=== PATIENT | female | born 1960 | race Caucasian/White ===

== ENCOUNTER 2024-10-21 14:07 | Outpatient (CLI) | payer BC, SELFPAY ==
[2024-10-21 16:25] LABS: Microalbumin Creatinine Ratio 40 mg/g (0-30); Microalbumin Urine < 1 mg/dL
[2024-10-21 16:54] LABS: Albumin* 4.9 g/dL (3.3-5.0); Chloride* 105 mmol/L (96-114); Potassium* 4.7 mmol/L (3.6-5.1); Sodium* 140 mmol/L (135-149)
[2024-10-21 16:57] LABS: Anion Gap 10 mEq/L (7-15); Blood Urea Nitrogen* 14 mg/dL (7-30); Carbon Dioxide* 25 mmol/L (20-32); Creatinine* 1.1 mg/dL (0.5-1.5); Estimated Glomerular Filt Rate 56 ml/min; Phosphorus* 3.2 mg/dL (2.5-4.5)
[2024-10-21 16:58] LABS: Calcium* 10.3 mg/dL (8.4-10.6); Glucose* 111 mg/dL (60-115)
== END 2024-10-21 14:08 | disposition home or self-care (01) ==
LOC: NPINS 14:10
PROVIDERS: PCP Family Medicine; Visit Provider Internal Medicine Nephrology
DX: N18.31 Chronic kidney disease, stage 3a (principal)
CPT/HCPCS: 80069; 82043; 82570

== ENCOUNTER 2024-10-26 06:26 | Emergency (ER) | payer BC, SELFPAY ==
[2024-10-26] VITALS (16 sets, daily range): BP systolic 146–181; BP diastolic 75–100; PULSE 75–88; RESP 18; TEMP 36.6; O2SAT 90–96; BMI 41.2
--- OUTSIDE RECORDS SUMMARY | 2024-10-26 06:28 | XMS_ITS | Clinical Summary ---
Author Organization [facility] Address [address] [place] [address] Care Team Providers Care Pouch Maker Name Role Phone Unavailable Primary Care Provider Unavailabl e Source Comments Patient records contain information from all sites at [facility]. For routine questions regarding patient records, call [phone] during business hours, M-F 8:00 AM - 5:00 PM Central Time. Record requests for emergency care only can be directed to [phone] at any time.[facility] Social History Tobacco Use Types Packs/Day Years Used Date Smoking Tobacco: Never Assessed Dental Answer Date Recorded Dental: Regular Dentist Unknown 02/17/20 24 Comments Unknown Sex and Gender Information Value Date Recorded Sex Assigned at Not on file Legal Sex Female 1:31 PM CDT Gender Identity Not on file Sexual Orientation Not on file Plan of Treatment Health Maintenance Due Date Last Done Comments Bone Density Scan (Osteoporosis Screen) 1959 CT Colonography 1959 Cervical/Vaginal Cancer Screening 1959 Cologuard 1959 FIT 1959 HIV Screening 1959 Hepatitis C Screening 1959 Mammogram 1959 Zoster Vaccines (1 of 2) 2009 Pneumococcal vaccine (50+ years) (2 of 2 - PCV) 08/06/2020 08/06/2019 COVID-19 Vaccine (3 - 2023- season) 2024 12/07/2020, 11/16/2020 Influenza Vaccine (#1) 2024 Depression Screening (Annual PHQ-2) 07/16/2024 Fall Risk Screen (Annual) 07/16/2024 DTaP,Tdap,and Td Vaccines (2 - Td or Tdap) 01/08/2025 01/08/2015 Colonoscopy 11/06/2026 11/06/2016 Colorectal Cancer Screening 11/06/2026 Fasting Glucose for Diabetes Screening 02/27/2027 02/28/2024, 12/13/2023, 11/28/2023, Additional history exists IPV Vaccines Aged Out No longer eligi ble based on patient's age to complete this topic Insurance [address] [place] [address] [place] MEDICARE
--- OUTSIDE RECORDS SUMMARY | 2024-10-26 06:29 | XMS_ITS | Clinical Summary ---
Author Organization [facility] Address [address] [place] [id number] Care Team Providers Care Catering Sales Manager Name Role Phone Soumya Gilmore MD Unavailable + Seema Estrella RN Unavailable Daya Hernández PharmD Unavailable Daya Hernández PharmD Unavailable Allergies Active Allergy Reactions Criticality Noted Date Comments Cephalexin Yeast Infection Cephalexin Hcl Other - Describe In Comment Field Low 09/25/2011 Yeast infection Phenytoin Hypotension Hydrochlorothiazide Other - Describe In Comment Field 04/20/2023 worsening kidney function Ceftriaxone Rash Low 07/18/2012 Carbamazepine Hypotension Medications cholecalciferol (VITAMIN D) 1,000 unit capsule Take 2 capsules by mouth once daily. 0 6 Active albuterol (PROVENTIL) 0.083 % neb solutionIndication s:COPD exacerbation (HC) Inhale 3 mL via a nebulizer every 4 hours if needed. 1 box 9 Active albuterol HFA (Ventolin HFA) 90 mcg/actuation inhalerIndications :COPD exacerbation (HC) Inhale 2 Puffs by mouth every 4 hours if needed for Shortness Of Breath or Wheezing (before exercise). 18 g 2 3 Active fluticasone furoate (Arnuity Ellipta) 100 mcg/actuation inhalerIndications :COPD exacerbation (HC) Inhale 1 Puff by mouth once daily. 3 Each 3 3 Active CPAPIndications:OS A (obstructive sleep apnea) CPAP machine for home use at pressure 8 cm/H2O, full face mask x1/3month with a full face cushion x1/mo 1 Each 11 3 Active lisinopriL (PRINIVIL; ZESTRIL) 40 mg tablet Take 40 mg by mouth once daily. Active rosuvastatin (CRESTOR) 20 mg tabletIndications: Mixed hyperlipidemia TAKE ONE TABLET BY MOUTH EVERY EVENING WITH A MEAL 90 Tablet 5 Active buPROPion (WELLBUTRIN XL) 300 mg Extended-Release tabletIndications: Bipolar affective disorder, remission status unspecified (HC) TAKE ONE TABLET (300MG) BY MOUTH ONCE DAILY 90 Tablet 5 Active levothyroxine (SYNTHROID) 50 mcg tabletIndications: Elevated TSH,Hypothyroidism (acquired) Take 1 Tablet (50 mcg) by mouth before breakfast. 90 Tablet 5 Active Active Problems Problem Noted Date Diagnosed Date Hypertension 10/17/2023 Overview (10/26/2023): hyrdrochlorothiazide caused worsening kidney function amlodipine caused leg swelling Hypothyroidism (acquired) 01/27/2021 Overview (01/27/2021): pos TPO COPD exacerbation 01/26/2021 Other emphysema 01/26/2021 Reactive airway disease with wheezing with acute exacerbation 02/02/2019 Hypoxia 02/02/2019 Closed displaced fracture of medial malleolus of right tibia 09/20/2018 Morbid obesity 05/02/2017 ASHISH 03/27/2017 AHI-15 04/24/2017 FH: colon polyps 09/04/2016 Elevated TSH 06/05/2016 Overview (06/05/2016): need to monitor Insomnia 11/18/2013 Chronic renal insufficiency, stage III (moderate ) 03/04/2013 Social phobia 03/28/2009 History of nephrectomy 02/05/2009 Overview (12/31/2017): Donated Mixed hyperlipidemia Bipolar disorder, unspecified Overview (01/24/2012): ir Esophageal reflux Resolved Problems Problem Noted Date Diagnosed Date Resolved Date Acute renal failure (ARF) 07/24/2012 Depressive disorder, not elsewhere classified 03/28/20 09 03/04/2013 Personal history of surgery to other major organs, presenting hazards to health 09/20/2006 hz seizure 01/26/2021 Overview (03/04/2013): Off medication since 2000 Encounters Date Type Department Care Team Description 09/15/2024 Refill [facility] [address] [place] [address] Nicolasa Watt NP Refill Request (Levothyroxine) 08/21/2024 Refill [facility] [address] [place] [address] Miguel Bonilla MD Refill Request (Bupropion) 08/21/2024 Refill [facility] [address] [place] [address] Nicolasa Watt NP Refill Request (Levothyroxine, Rosuvastatin) from Last 3 Months Immunizations Immunization Administration Dates Next Due COVID-19 vaccine ([employer] 30mcg/0.3mL) ONEAL [place] 12/07/2020,11/16/2020 Pneumococcal Conj 20-valent (Prevnar 20) 024 Pneumococcal Poly,23-Valent (Pneumovax) 08/06/19 20 Tdap 01/08/2015 Family History Medical History Relation Name Comments Hypertension Brother Mann Kidney failure Brother Mann Alcohol/Drug Father Allergies Father Diabetes Father Hypertension Father Other Father depression Arthritis Maternal Grandmother Danielle Heart Disease Maternal Grandmother Danielle Hypertension Maternal Grandmother Danielle Other Maternal Grandmother Danielle depress ion Stroke Maternal Grandmother Danielle Allergies Mother Cancer Mother mets Other Mother depression Relation Name Status Comments Brother Mann Father Maternal Grandmother Danielle (Age 90) Mother Sister Pablo/2 sister Alive Social History Tobacco Use Types Packs/Day Years Used Date Smoking Tobacco: Former Cigarettes 2.5 20 0 09/08/1983 - 09/08/2003 Smokeless Tobacco: Never Tobacco Cessation:Counseling Given: Not Answered Alcohol Use Standard Drinks/Week Comments Yes 0 (1 standard drink = 0.6 oz pur e alcohol) occasional PHQ-2 Answer Date Recorded PHQ-2 TOTAL SCORE 0 05/10/2022 Social Connections Answer Date Recorded Frequency of Communication with Friends and Fami ly 0 03/14/2023 Financial Resource Strain Answer Date R ecorded Difficulty of Paying Living Expenses 3 03/14/2023 Difficulty of Paying Living Expenses Not on file 03/14/2023 Food Insecurity Answer Date Recorded Worried About Running Out of Food in the Last Ye ar 1 03/14/2023 Transportation Needs Answer Date Record ed Lack of Transportation (Medical) 2 03/14/2023 Housing Stability Answer Date Recorded Unable to Pay for Housing in the Last Year 1 03/14/2023 Interpersonal Safety Answer Date Record ed Are you being hit, kicked, p ushed or yelled at (see row info)? No 02/17/2024 Interpersonal Safety Abuse 12 - 18 Not on file 02/17/2024 Interpersonal Safety Ambulatory Vulnerability No t on file 02/17/2024 Comments No Sex and Gender Information Value Date Recorded Sex Assigned at Not on file Legal Sex Female 5:28 AM RESIDENTIAL MANAGER Gender Identity Not on file Sexual Orientation Not on file Occupation Industry Job Start Date Job End Date unemployed Not on file Not on file Not on file Obstetrics History Para Term AB IAB SAB Ectopic Multiple Livin g Live Births 0 0 0 0 0 0 0 0 Last Filed Vital Signs Vital Sign Reading Time Taken Comments Blood Pressure 167/77 02/17/2024 2:34 PM CDT Pulse 64 02/17/2024 2:34 PM CDT Temperature 36.7 C (98 F) 02/17/2024 1:04 PM CDT Respiratory Rate 16 02/17/2024 1:04 PM CDT Oxygen Saturation 95% 02/17/2024 2:34 PM CDT Inhaled Oxygen Concentration - - Weight 100.2 kg (220 lb 14.4 oz) 02/17/2024 1:04 PM CDT Height 154.9 cm (5' 1) 02/17/2024 1:04 PM CDT Body Mass Index 41.74 02/17/2024 1:04 PM CDT Plan of Treatment Health Maintenance Due Date Last Done Comments HIV for age 15-65 1974 Zoster (shingles) series for age 50+ (1 of 2) 2009 Mammogram for age 45-75 06/21/2012 06/21/2011 RSV vaccine for adults or (1 - Risk 60-74 years 1-dose series) 2019 Colonoscopy through age 75 11/06/202111/06, 11/06/2016, 11/06/2016, Additional history exists BMI (ht and wt on same day) for age 18+ 05/10/2023 05/10/2022, 04/25/2021, 04/05/2021, Additional history exists Depression screening for age 12+ 05/10/2023 05/10/2022, 04/27/2021, 04/25/2021, Additional history exists COVID-19 vaccine series ( season) 2024 12/07/2020, 11/16/2020 DEXA/DXA scan for age 65+ 2024 06/19/2011 Tetanus booster 01/08/2025 01/08/2015 Influenza Vaccine (Season Ended) 2025 Lipids for age 45-75 05/10/2027 05/10/2022, 04/05/2021, 04/05/2021, Additional history exists Tdap Completed 01/08/2015 Hepatitis C screening for ag e 18-79 Completed 12/31/2017 Pneumococcal series for age 50+ Completed 4, 08/06/2019 Procedures Procedure Name Priority Date/Time Associated Diagnosis Comments LIPID PANEL W REFLEX MEASURED LDL Routine 05/10/2022 3:01 PM CDT Mixed hyperlipidemia ANTI HCV Routine 12/31/2017 11:41 AM CDT Need for hepatitis C screening test COLONOSCOPY SCREENING Routine 11/06/2016 FH: colon polyps SCAN-MAMMOGRAPHY REPORT 06/21/2011 12:00 AM RESIDENTIAL MANAGER XR DXA BONE DENSITY 2 SITES AXIAL Routine 06/19/2011 2:00 PM RESIDENTIAL MANAGER Encounter for screening for osteoporosis from Last 3 Months or Most Recently Relevant to Health Maintenance Results * (ABNORMAL) LIPID PANEL W REFLEX MEASURED LDL (05/10/2022 3:01 PM CDT) CHOLESTEROL,TOTAL 167 100 - 199 mg/dL 05/10/2022 3:36 PM CDT [facility] TRIGLYCERIDES 351(H) <150 mg/dL 05/10/2022 3:36 PM T [facility] HDL CHOLESTEROL 37(L) >40 mg/dL 3:36 PM CDT [facility] NON-HDL CHOLESTEROL 130 <145 mg/dl 05/10/2022 3:36 PM T [facility] CHOL/HDL RATIO 4.51(H) <4.50 05/10/2022 3:36 PM T [facility] LDL CHOLESTEROL 60 <=130 mg/dL 05/10/2022 3:36 PM T [facility] VLDL CHOLESTEROL 70(H) <=30 mg/dL 05/10/2022 3:36 PM T [facility] PROVIDER ORDERED STATUS RANDOM 05/10/2022 3:36 PM T [facility] Blood BLOOD SPECIMEN / Unknown Venipuncture / Unknown 05/10/2022 3:01 PM CDT 05/10/2022 3:04 PM CDT Nicolasa Watt NP CHEMISTRY Final Result Performing Organization Address City/[facility] Co de Phone Number [facility] [address] [place] [address] * ANTI HCV [30424.2] (12/31/2017 11:41 AM CDT) HEPATITIS C ANTIBODY Non-React ghislaine Non-React ghislaine 12/31/2017 9:31 PM CDT [facility] Comment:Antibodies to HCV no t detected; does not exclude the possibility of exposure to HCV. Blood BLOOD SPECIMEN / Unknown Venipuncture / Unknown 12/31/2017 11:41 AM CDT 12/31/2017 11:41 AM CDT Nicolasa Watt NP SEND OUTS Final Result [facility] [address] [place] [address], [place] * COLONOSCOPY SCREENING (11/06/2016) us Marbin Ordonez MD GI PROCEDURE ORD Final Re sult * SCAN-MAMMOGRAPHY REPORT (06/21/2011 12:00 AM RESIDENTIAL MANAGER) Anatomical Region Laterality Modality Other Narrative Procedure Note Scanner - 06/21/2011 12:00 AM RESIDENTIAL MANAGER us Scanner OTHER Final Result * XR DEXA BONE DENSITY 2 SITES (06/19/2011 2:00 PM RESIDENTIAL MANAGER) Anatomical Region Laterality Modality Spine, HIPS, HIPL, HIPR Other us Jozef Caceres MD DEXA Final Result from Last 3 Months or Most Recently Relevant to Health Maintenance Insurance MEDICARE PART B HB ONLY MEDICAID MEDICARE PB ONLY MEDICARE PART A HB ONLY MEDICARE PART B [place] ONLY MEDICAID Advance Directives * Full Code (Latest Code Status on File) Date Activated Date Inactivated Comments 02/02/2019 8:37 PM 02/03/2019 3:33 PM Question Answer Comments Code Status Discussion: Not Discussed Care Teams Catering Sales Manager Relationship Specialty Start Date End Date Soumya Gilmore MD [address] [place] [address] Family Practice 04/06/16 Seema Estrella, RN [address] [facility] [place] [address] Primary Care RN Care Management Registered Nurse 08/01/23 Daya Hernández PharmD [address] [place] [address] [place] [address] Pharmacist Medication Management Pharmacology 10/25/23 10/24/26 Daya Hernández PharmD [address] [place] [address] [place] [address] Pharmacology 12/03/23
--- NOTE | 2024-10-26 08:05 | CRLHL7_ITS ---
For Patients: As a result of the Century Cures Act, medical imaging exams and procedure reports are released immediately into your electronic medical record. You may view this report before your referring provider. If you have questions, please contact your health care provider. INDICATION: Epigastric pain TECHNIQUE: Ultrasound abdomen limited. Sonographic images of the right upper quadrant were obtained using monaco-scale and color Doppler images. COMPARISON: None. FINDINGS: Liver: The liver demonstrates diffuse increased echogenicity, suggestive of fatty liver. No masses. No intrahepatic biliary dilatation. Gallbladder: No stones or sludge. Normal wall thickness. No pericholecystic fluid. Common bile duct: 4 mm. Pancreas: Pancreas is limited in evaluation. Right kidney: 12.8 cm. Normal echotexture and cortex. No masses, stones, or hydronephrosis. Vasculature: Limited visualization of the proximal aorta is unremarkable. IMPRESSION: Nondiagnostic evaluation of the pancreas, otherwise unremarkable right upper quadrant ultrasound. Dictated by Leona Proctor MD @ 10/26/2024 9:20:03 AM Dictated by: Leona Proctor MD @ 10/26/2024 09:20:12 (Electronically Signed)
--- NOTE | 2024-10-26 08:08 | ED_ITS ---
HPI - General Adult General Chief complaint: Abdominal Pain Stated complaint: abdominal pain Time Seen by Provider: 10/26/24 07:58 Source: patient Mode of arrival: EMS Limitations: no limitations History of Present Illness HPI narrative: 64-year-old female presenting today with abdominal pain the from present for about a month. Pain comes and goes, always worse after eating. When it comes it can last up to 4-5 hours. Pain is located in the epigastric region and does not radiate. Nothing makes it better. It causes her to feel nauseated but she does not vomit. She denies fevers or chills. She has denies diarrhea or constipation that accompanies the pain. She denies any urinary symptoms such as increased frequency, urgency or dysuria. She denies any weight changes. This time the pain started in the middle of the night and was continuous. Patient called the ambulance. Related Data Home Medications ?Medication ?Instructions ?Recorded ?Confirmed bupropion HCl 300 mg 24 hr tablet, 300 mg PO DAILY 03/27/24 03/27/24 extended release carvedilol 12.5 mg tablet 6.25 mg PO BID 03/27/24 03/27/24 fluticasone furoate 100 1 inh inhalation DAILY PRN 03/27/24 03/27/24 mcg/actuation blister powder for inhalation (Arnuity Ellipta) levothyroxine 50 mcg tablet 50 mcg PO QAM 03/27/24 03/27/24 lisinopril 40 mg tablet 40 mg PO QAM 03/27/24 03/27/24 rosuvastatin 20 mg tablet 20 mg PO QPM 03/27/24 03/27/24 Previous Rx's ?Medication ?Instructions ?Recorded tirzepatide 2.5 mg/0.5 mL 2.5 mg (0.5 mL) subcut QWEEK #2 mL 03/27/24 subcutaneous pen injector (Mounjaro) albuterol sulfate 90 mcg/actuation 2 puff inhalation Q4H PRN wheezing 07/22/24 aerosol inhaler (Ventolin HFA) #8.5 grams sucralfate 1 gram tablet (Carafate) 1 g PO QID PRN #30 tabs 10/26/24 Allergies Allergy/AdvReac Type Severity Reaction Status Date / Time ceftriaxone (From Rocephin) Allergy Intermediate Rash Verified 03/27/24 11:43 phenytoin (From Dilantin) Allergy Intermediate Hypotension Verified 03/27/24 11:43 carbamazepine (From Tegretol) Allergy Mild Hypotension Verified 03/27/24 11:43 cephalexin AdvReac Intermediate yeast Verified 03/27/24 11:43 infection hydrochlorothiazide AdvReac Unknown Worsening Verified 04/08/24 10:56 of Kidney Function Review of Systems Status of ROS: Reports: 10 or more systems reviewed and unremarkable except as noted in History and below PFSH COUNT INCLUDES THE [facility] Medical History Osteopenia ?M85.80 - Other specified disorders of bone density and structure, unspecified site (ICD-10) Chronic pain of right knee ?M25.561 - Pain in right knee (ICD-10) ?G89.29 - Other chronic pain (ICD-10) History of adenomatous polyp of colon ?Z86.010 - Personal history of colonic polyps (ICD-10) Primary hypertension ?I10 - Essential (primary) hypertension (ICD-10) Exogenous obesity ?E66.09 - Other obesity due to excess calories (ICD-10) Hypothyroidism ?E03.9 - Hypothyroidism, unspecified (ICD-10) Reactive airway disease ?J45.909 - Unspecified asthma, uncomplicated (ICD-10) ASHISH (obstructive sleep apnea) ?G47.33 - Obstructive sleep apnea (adult) (pediatric) (ICD-10) Insomnia ?G47.00 - Insomnia, unspecified (ICD-10) Social phobia ?F40.10 - Social phobia, unspecified (ICD-10) GERD (gastroesophageal reflux disease) ?K21.9 - Gastro-esophageal reflux disease without esophagitis (ICD-10) History of seizure ?Z87.898 - Personal history of other specified conditions (ICD-10) Bipolar disorder ?F31.9 - Bipolar disorder, unspecified (ICD-10) Mixed hyperlipidemia ?E78.2 - Mixed hyperlipidemia (ICD-10) Single kidney ?Z90.5 - Acquired absence of kidney (ICD-10) Chronic kidney disease ?N18.9 - Chronic kidney disease, unspecified (ICD-10) Surgical History History of hysterectomy ?Z90.710 - Acquired absence of both cervix and uterus (ICD-10) History of surgery of liver ?Z98.890 - Other specified postprocedural states (ICD-10) History of section (1977) ?Z98.891 - History of uterine scar from previous surgery (ICD-10) History of breast augmentation (1994) ?Z98.82 - Breast implant status (ICD-10) History of nephrectomy (2003) ?Z90.5 - Acquired absence of kidney (ICD-10) History of open reduction and internal fixation (ORIF) procedure (09/24/18) ?Z98.890 - Other specified postprocedural states (ICD-10) Family History Mother Depression Father Alcohol dependence Diabetes High blood pressure Depression Maternal Grandmother Heart disease High blood pressure Stroke Depression Brother High blood pressure Kidney failure Other Colon polyps Social History What is your current living situation?: I presently have a place to live Problems where you live: no known problems In the past 12 months, utilities in danger of being shut off: no In past 12 months, lack of transportation kept you from medical appts, meetings, work, or getting things needed for daily living: no In the past 12 mos, have been you worried that your food would run out before you had money to buy more?: sometimes true In the past 12 mos, the food you bought just didn't last and you didn't have money to buy more?: never true Smoking Status: Former smoker How often do you have a drink containing alcohol: monthly or less AUDIT-C Alcohol total score: 1 Non-prescribed substance use: denies use How often does anyone, including family, friends and others, physically hurt you : never How often does anyone, including family, friends and others, insult or talk down to you: never How often does anyone, including family, friends and others, threaten you with harm: never How often does anyone, including family, friends and others, scream or curse at you: never Health Related Social Needs: food insecurity (Z59.41) Exam Narrative: Exam Narrative: Obese, well-developed patient in no acute distress. Alert and oriented. Answers questions appropriately. Mood and affect are appropriate. Thoughts are goal oriented and rational. No tangential or magical thinking noted. Patient speaks in full sentences without needing to catch her breath. HEENT: Normocephalic atraumatic. Pupils are equally round reactive to light. Extraocular muscles are intact. Conjunctivae are moist without any icterus noted. Moist mucous membranes. Neck is soft. Cardiovascular: Heart is regular rate and rhythm S1 and S2 are present without any murmurs. Lungs: Clear to auscultation bilaterally no wheezes rhonchi or rales are appreciated. Patient takes deep breaths without any discomfort. Abdomen: Soft, protuberant, nondistended with normal bowel sounds. She has epigastric discomfort. Negative Albright sign. No other discomfort. Extremities: Bilateral lower extremities are without edema. Skin: Well perfused without any obvious rashes. Const: Vital Signs, click to edit/add: Vital Signs - 24 hr 10/26/24 06:32 10/26/24 07:37 10/26/24 08:05 Temperature 97.9 F Pulse Rate 82 Pulse Rate [Left P ulse Oximeter] 80 82 Respiratory Rate 18 18 Blood Pressure 161/95 H Blood Pressure [Le ft Upper Arm] 181/100 H 156/80 H Pulse Oximetry 95 95 96 Oxygen Delivery Me thod Room Air Room Air Oxygen Flow Rate 10/26/24 08:06 10/26/24 08:15 10/26/24 08:21 Temperature Pulse Rate 83 81 Pulse Rate [Left P ulse Oximeter] Respiratory Rate Blood Pressure Blood Pressure [Le ft Upper Arm] Pulse Oximetry 93 90 92 Oxygen Delivery Me thod Nasal Cannula Oxygen Flow Rate 2 10/26/24 08:30 10/26/24 08:33 10/26/24 08:34 Temperature Pulse Rate 77 75 77 Pulse Rate [Left P ulse Oximeter] Respiratory Rate Blood Pressure 146/75 H Blood Pressure [Le ft Upper Arm] Pulse Oximetry 94 94 93 Oxygen Delivery Me thod Oxygen Flow Rate 10/26/24 08:53 10/26/24 09:21 10/26/24 09:30 Temperature Pulse Rate 77 88 82 Pulse Rate [Left P ulse Oximeter] Respiratory Rate Blood Pressure Blood Pressure [Le ft Upper Arm] Pulse Oximetry 92 92 91 Oxygen Delivery Me thod Oxygen Flow Rate 10/26/24 09:45 10/26/24 10:00 10/26/24 10:15 Temperature Pulse Rate 85 83 79 Pulse Rate [Left P ulse Oximeter] Respiratory Rate Blood Pressure Blood Pressure [Le ft Upper Arm] Pulse Oximetry 92 92 93 Oxygen Delivery Me thod Oxygen Flow Rate 10/26/24 10:30 Temperature Pulse Rate 82 Pulse Rate [Left P ulse Oximeter] Respiratory Rate Blood Pressure Blood Pressure [Le ft Upper Arm] Pulse Oximetry 93 Oxygen Delivery Me thod Oxygen Flow Rate Course Course ED Course: Differential diagnoses includes peptic ulcer disease, pancreatitis, cholelithiasis, cholecystitis. IV is established and patient is given another dose of fentanyl for pain control. She is also given a dose of oral Carafate. Labs are drawn and ultrasound is ordered. EKG, read by me, shows normal sinus rhythm with a pulse of 83. Right upper quadrant ultrasound did not show any evidence of cholecystitis or cholelithiasis. She does have fatty liver. CBC showed a slightly elevated white count at 13.17. Normal lactate. Chemistries are unremarkable. LFTs are unremarkable. CRP 1.9. Lipase is slightly elevated at 453. Troponin is normal. Patient's pain was controlled for about 2 hours with Carafate and fentanyl and then came back. At this time we tried a GI cocktail. And started a L of normal saline. Patient felt relief after a GI cocktail. This leads me to believe that her pain is likely caused by a gastric ulcer. Vital Signs Vital signs: Initial Vital Signs Temperature 97.9 F 10/26/24 06:32 Temperature Source Oral 10/26/24 06:32 Pulse Rate 80 10/26/24 06:32 Pulse Rhythm Regular 10/26/24 06:32 Respiratory Rate 18 10/26/24 06:32 Blood Pressure 181/100 H 10/26/24 06:32 Blood Pressure Mean 127 H 10/26/24 06:32 Blood Pressure Position Sitting 10/26/24 06:32 Pulse Oximetry 95 10/26/24 06:32 Oxygen Delivery Method Room Air 10/26/24 06:32 Vital Signs Temperature 97.9 F 10/26/24 06:32 Pulse Rate 80 10/26/24 06:32 Respiratory Rate 18 10/26/24 06:32 Blood Pressure 181/100 H 10/26/24 06:32 Pulse Oximetry 95 10/26/24 06:32 Oxygen Delivery Method Room Air 10/26/24 06:32 Temperature 97.9 F 10/26/24 06:32 Pulse Rate 82 10/26/24 10:30 Respiratory Rate 18 10/26/24 07:37 Blood Pressure 146/75 H 10/26/24 08:33 Pulse Oximetry 93 10/26/24 10:30 Oxygen Delivery Method Nasal Cannula 10/26/24 08:21 Oxygen Flow Rate 2 10/26/24 08:21 Medications Administered Medications: Generic Name Dose Route Start Last Admin Trade Name Freq PRN Reason Stop Dose Admin Sodium Chloride 1,000 mls @ 1,000 mls/hr 10/26/24 10:30 10/26/24 10:36 0.9 % Sodium Chloride 1000 Ml IV 10/26/24 11:29 1,000 mls/hr .Q1H VALERIE Administration Discontinued Medications Generic Name Dose Route Start Last Admin Trade Name Freq PRN Reason Stop Dose Admin Fentanyl 50 mcg 10/26/24 08:04 10/26/24 08:12 Fentanyl 100 Mcg/2 Ml Inj IVP 10/26/24 08:05 50 mcg ONCE ONE Administration Lidocaine/Aluminum/Magnesium/Simeth 30 ml 10/26/24 10:33 10/26/24 10:40 Gi Cocktail (Visc Lido/Antacid) 30 Ml PO 10/26/24 10:34 30 ml ONCE ONE Administration Sucralfate 1 gm 10/26/24 08:10 10/26/24 08:37 Sucralfate 1 Gm Tablet PO 10/26/24 08:11 1 gm ONCE ONE Administration Medical Decision Making MDM Narrative Medical decision making narrative: 64-year-old female with abdominal pain. Differential is broad but most likely due to a gastric ulcer. At this time patient will be started on omeprazole and Carafate. She will follow up with primary care to discuss an EGD. Lab Data Lab results reviewed: Yes I reviewed the patient's lab results Labs: Lab Results 10/26/24 Range/Units 09:29 WBC 13.17 H (4.50-11.00) K/uL RBC 5.00 (4.00-5.20) m/uL Hgb 14.7 (12.0-16.0) gm/dL Hct 44.8 (33.0-51.0) % MCV 90 (80-100) fL MCH 29 (26-34) pg MCHC 33 (32-36) gm/dL RDW Coeff of Shira 13.3 (11.5-15.5) % Plt Count 240 (140-440) K/uL Neut % (Auto) 69.9 (42.0-72.0) % Lymph % (Auto) 22.1 (20-44) % Greene % (Auto) 6.3 (0.0-11.0) % Eos % (Auto) 1.4 (0.0-7.0) % Baso % (Auto) 0.1 (0.0-3.0) % Neut # (Auto) 9.20 H (1.7-7.0) K/uL Lymph # (Auto) 2.90 (0.90-2.90) K/uL Greene # (Auto) 0.80 (0.00-0.90) K/UL Eos # (Auto) 0.20 (0.00-0.50) K/uL Baso # (Auto) 0.00 (0.00-0.30) K/uL Abs Immat Gran (auto) 0.00 (0.00-0.30) K/uL Imm/Tot Granulo (auto) 0.2 % Sodium 137 (135-149) mmol/L Potassium 4.6 (3.6-5.1) mmol/L Chloride 101 (96-114) mmol/L Carbon Dioxide 25 (20-32) mmol/L Anion Gap 11 (7-15) mEq/L BUN 17 (7-30) mg/dL Creatinine 1.2 (0.5-1.5) mg/dL Estimated Creat Clear 36.97 Estimated GFR 50 ml/min Glucose 121 H (60-115) mg/dL Lactate 0.8 (0.5-1.9) mmol/L Calcium 9.8 (8.4-10.6) mg/dL Total Bilirubin 0.7 (0.1-1.5) mg/dL Direct Bilirubin 0.4 (0.0-0.5) mg/dL AST 29 (12-35) U/L ALT 39 H (4-35) U/L Alkaline Phosphatase 83 (40-150) U/L Troponin I < 0.01 (0.01-0.04) ng/mL C-Reactive Protein 1.9 H (0.5-1.0) mg/dL Total Protein 8.0 (6.0-8.3) g/dL Albumin 4.9 (3.3-5.0) g/dL Lipase 453 H (23-300) U/L ECG Data Attestation: I personally reviewed and interpreted this ECG as follows: Discharge Plan Discharge Clinical Impression: Abdominal pain, Gastric ulcer Patient Disposition: Home, Self-Care Condition: Stable Additional Instructions: I have a high suspicion that your pain today is likely caused by an ulceration in the lining of your stomach. The way we treat this is to decrease the amount of acid in the stomach, so you will have to start taking a daily omeprazole tablet. You can purchase this [id number]. You will also be sent home with Carafate which lines the stomach and helps with discomfort. This is the same medication you received while you were in the emergency department. You will need to follow-up with your primary care provider to discuss doing an endoscopy, this is where camera was inserted into the stomach to make sure that this is in fact what we are dealing with. In the meantime recommend staying away from carbonated beverages, acidic foods such as citrus, spicy foods, or coffee. These foods can all increase the amount of stomach acid and exacerbate your symptoms. Lastly, Mounjaro can also cause abdominal pain. If after taking omeprazole and Carafate for 1 week your pain does not get better, I recommend you stop taking Mounjaro. Prescriptions: New sucralfate [Carafate] 1 gram tablet 1 g PO QID PRNQty: 30 0RF No Action bupropion HCl 300 mg tablet extended release 24 hr 300 mg PO DAILY rosuvastatin 20 mg tablet 20 mg PO QPM lisinopril 40 mg tablet 40 mg PO QAM carvedilol 12.5 mg tablet 6.25 mg PO BID levothyroxine 50 mcg tablet 50 mcg PO QAM Arnuity Ellipta 100 mcg/actuation blister with device 1 inh inhalation DAILY PRN Mounjaro 2.5 mg/0.5 mL pen injector 2.5 mg subcut QWEEK Qty: 2 0RF Rx Instructions: for 4 weeks albuterol sulfate [Ventolin HFA] 90 mcg/actuation HFA aerosol inhaler 2 puff inhalation Q4H PRN (Reason: wheezing) Qty: 8.5 2RF Follow Up/Referrals: Davin Goncalves MD [Primary Care Provider] - Stand Alone Forms: Where Was it Filmed Info Instructions
[2024-10-26] MEDS: fentaNYL 100 MCG/2 ML inj 50 MCG IVP (08:12)
--- OUTSIDE RECORDS SUMMARY | 2024-10-26 08:13 | XMS_ITS | Clinical Summary ---
Author Organization [facility] Address [address] [place] [address] Care Team Providers Care Client Service Executive Name Role Phone Soumya Gilmore MD Unavailable + Seema Estrella RN Unavailable Daya Hernández PharmD Unavailable [phone] Daya Hernández PharmD Unavailable Allergies Active Allergy [...] Type Department Care Team Description 09/15/2024 Refill [facility] [address] [place] [address] Nicolasa Watt NP Refill Request (Levothyroxine) 08/21/2024 Refill [facility] [address] [place] [address] Miguel Bonilla MD Refill Request (Bupropion) 08/21/2024 Refill [facility] [address] [place] [address] Nicolasa Watt NP Refill Request (Levothyroxine, Rosuvastatin) from Last 3 Months Immunizations Immunization Administration Dates Next Due COVID-19 vaccine ([employer] 30mcg/0.3mL) ONEAL Diego 12/07/2020,11/16/2020 Pneumococcal Conj 20-valent [...] on file Legal Sex Female 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 Gender Identity Not on file Sexual Orientation [...] colon polyps SCAN-MAMMOGRAPHY REPORT 06/21/2011 12:00 AM GEODETIC ADVISOR XR DXA BONE DENSITY 2 SITES AXIAL Routine 06/19/2011 2:00 PM GEODETIC ADVISOR Encounter for screening for osteoporosis from Last 3 Months or Most Recently Relevant to Health Maintenance Results * (ABNORMAL) LIPID PANEL W REFLEX MEASURED LDL (05/10/2022 3:01 PM CDT) CHOLESTEROL,TOTAL 167 100 - 199 mg/dL 05/10/2022 3:36 PM CDT [facility] TRIGLYCERIDES 351(H) <150 mg/dL 05/10/2022 3:36 PM T [facility] HDL CHOLESTEROL 37(L) >40 mg/dL 3:36 PM CDT [facility] NON-HDL CHOLESTEROL 130 <145 mg/dl 05/10/2022 3:36 PM T [facility] CHOL/HDL RATIO 4.51(H) <4.50 05/10/2022 3:36 PM T [facility] LDL CHOLESTEROL 60 <=130 mg/dL 05/10/2022 3:36 PM T [facility] VLDL CHOLESTEROL 70(H) <=30 mg/dL 05/10/2022 3:36 PM T [facility] PROVIDER ORDERED STATUS RANDOM 05/10/2022 3:36 PM T [facility] Blood BLOOD SPECIMEN / Unknown Venipuncture / Unknown 05/10/2022 3:01 PM CDT 05/10/2022 3:04 PM CDT Nicolasa Watt NP CHEMISTRY Final Result Performing Organization Address City/[facility] Co de Phone Number [facility] [address] [place] [address] * ANTI HCV [93794.2] (12/31/2017 11:41 AM CDT) HEPATITIS C ANTIBODY Non-React ghislaine Non-React ghislaine 12/31/2017 9:31 PM CDT [facility] Comment:Antibodies to HCV no t detected; does not exclude the possibility of exposure to HCV. Blood BLOOD SPECIMEN / Unknown Venipuncture / Unknown 12/31/2017 11:41 AM CDT 12/31/2017 11:41 AM CDT Nicolasa Watt NP SEND OUTS Final Result [facility] [address] [place] [address], [place] * COLONOSCOPY SCREENING (11/06/2016) us Marbin Ordonez MD GI PROCEDURE ORD Final Re sult * SCAN-MAMMOGRAPHY REPORT (06/21/2011 12:00 AM GEODETIC ADVISOR) Anatomical Region Laterality Modality Other Narrative Procedure Note Scanner - 06/21/2011 12:00 AM GEODETIC ADVISOR us Scanner OTHER Final Result * XR DEXA BONE DENSITY 2 SITES (06/19/2011 2:00 PM GEODETIC ADVISOR) Anatomical Region Laterality Modality Spine, HIPS, HIPL, [...] Code Status Discussion: Not Discussed Care Teams Client Service Executive Relationship Specialty Start Date End Date Soumya Gilmore MD [address] [place] [address] Family Practice 04/06/16 Seema Estrella, RN [address] [facility] [place] [address] Primary Care RN Care Management Registered Nurse 08/01/23 Daya Hernández PharmD [address] [place] [address] [place] [address] Pharmacist Medication Management Pharmacology 10/25/23 10/24/26 Daya Hernández PharmD [address] [place] [address] [place] [address] Pharmacology 12/03/23
--- OUTSIDE RECORDS SUMMARY | 2024-10-26 08:13 | XMS_ITS | Clinical Summary ---
Author Organization [facility] Address [address] [place] [address] Care Team Providers Care [place] Repairer Name Role Phone Unavailable Primary Care Provider Unavailabl e Source Comments Patient records contain information from all sites at [facility]. For routine questions regarding patient records, call [phone] during business hours, M-F 8:00 AM - 5:00 PM Central Time. Record requests for emergency care only can be directed to [phone] at any time.[facility] Social History Tobacco Use Types Packs/Day Years [...] age to complete this topic Insurance [address] [place] [address] [place]
[2024-10-26] MEDS: SUCRALFATE 1 GM TABLET PO (08:37)
[2024-10-26 09:43] LABS: Lactate* 0.8 mmol/L (0.5-1.9)
[2024-10-26 09:58] LABS: Basophils Percent Auto 0.1 % (0.0-3.0); Eosinophils Percent Auto 1.4 % (0.0-7.0); Hematocrit 44.8 % (33.0-51.0); Hemoglobin* 14.7 gm/dL (12.0-16.0); Immature Granulocytes Pct Auto 0.2 %; Lymphocytes Percent Auto 22.1 % (20-44); Mean Corpuscular HGB Conc 33 gm/dL (32-36); Mean Corpuscular Hemoglobin 29 pg (26-34); Mean Corpuscular Volume 90 fL (80-100); Monocytes Percent Auto 6.3 % (0.0-11.0); Neutrophils Percent Auto 69.9 % (42.0-72.0); Platelet Count* 240 K/uL (140-440); RDW Coefficient of Variation % 13.3 % (11.5-15.5); White Blood Count* 13.17 K/uL (4.50-11.00)
[2024-10-26 10:04] LABS: Slide Review Reflex No
[2024-10-26 10:12] LABS: Albumin* 4.9 g/dL (3.3-5.0); Chloride* 101 mmol/L (96-114)
[2024-10-26 10:13] LABS: Potassium* 4.6 mmol/L (3.6-5.1); Sodium* 137 mmol/L (135-149)
[2024-10-26 10:15] LABS: Blood Urea Nitrogen* 17 mg/dL (7-30); Creatinine* 1.2 mg/dL (0.5-1.5); Est. Creatinine Clearance* 36.97; Estimated Glomerular Filt Rate 50 ml/min
[2024-10-26 10:16] LABS: Alanine Aminotransferase* 39 U/L (4-35); Alkaline Phosphatase* 83 U/L (40-150); Anion Gap 11 mEq/L (7-15); Aspartate Amino Transferase* 29 U/L (12-35); Bilirubin Direct* 0.4 mg/dL (0.0-0.5); Bilirubin Total* 0.7 mg/dL (0.1-1.5); Calcium* 9.8 mg/dL (8.4-10.6); Carbon Dioxide* 25 mmol/L (20-32); Glucose* 121 mg/dL (60-115); Lipase* 453 U/L (23-300)
[2024-10-26 10:19] LABS: C Reactive Protein* 1.9 mg/dL (0.5-1.0)
[2024-10-26 10:35] LABS: Troponin I* < 0.01 ng/mL (0.01-0.04)
[2024-10-26] MEDS: 0.9 % SODIUM CHLORIDE 1000 ml 1,000 ML IV (10:36)
[2024-10-26] MEDS: GI COCKTAIL (VISC LIDO/ANTACID) 30 ML PO (10:40)
== END 2024-10-26 11:39 | disposition home or self-care (01) ==
PROVIDERS: Emergency Provider Family Medicine; PCP Family Medicine
DX: R10.9 Unspecified abdominal pain (principal); K25.9 Gastric ulcer, unspecified as acute or chronic, without hemorrhage or perforation
CPT/HCPCS: 36415; 76705; 80048; 80076; 83605; 83690; 84484; 85025; 86140; 93005; 96374; 99284; A9270; J3010; J7030

== ENCOUNTER 2024-11-04 08:09 | Outpatient (CLI) | payer BC, SELFPAY | END 2024-11-04 08:10 | disposition home or self-care (01) | PROVIDERS: PCP Family Medicine; Visit Provider Family Medicine | DX: E78.5 Hyperlipidemia, unspecified (principal); E03.9 Hypothyroidism, unspecified | CPT/HCPCS: 80061; 84439; 84443 ==

== ENCOUNTER 2025-02-09 16:02 | Outpatient (CLI) | payer BC, SELFPAY | END 2025-02-09 16:03 | disposition home or self-care (01) | LOC: FBOREF 16:02 | PROVIDERS: PCP Family Medicine; Visit Provider Family Medicine | DX: E03.9 Hypothyroidism, unspecified (principal) | CPT/HCPCS: 84443 ==